=== PATIENT | male | born 2000 | race African-American/Black ===

== ENCOUNTER 2023-10-11 20:57 | Emergency (ER) | payer OTHER ==
[~2023-10-11] VITALS: Ht 165.1 cm; Wt 104.5 kg
[2023-10-12 00:15] VITALS: BP 109/62; TEMP 98; O2SAT 98
== END 2023-10-12 00:42 | disposition home or self-care (01) ==
LOC: M ED 20:57
DX: S93.402A Sprain of unspecified ligament of left ankle, initial encounter (principal); Y92.9 Unspecified place or not applicable; Y93.02 Activity, running; Y99.1 Military activity; Z91.048 Other nonmedicinal substance allergy status

== ENCOUNTER → 2025-02-09 | Outpatient (REF) | payer OTHER | LOC: M SMT 13:18 | PROVIDERS: ATTEND Urology | DX: Z30.2 Encounter for sterilization (principal) ==